=== PATIENT | female | born 1950 | race Two or more races ===

== ENCOUNTER 2025-06-14 12:00 | Outpatient (CLI) | payer OTHER | END 2025-06-14 12:03 | disposition home or self-care (01) | LOC: RAD 12:00 | PROVIDERS: ATTEND Internal Medicine Rheumatology | DX: M19.90 Unspecified osteoarthritis, unspecified site (principal); M50.80 Other cervical disc disorders, unspecified cervical region; M51.9 Unspecified thoracic, thoracolumbar and lumbosacral intervertebral disc disorder ==

== ENCOUNTER 2025-08-17 07:38 | Outpatient (CLI) | payer OTHER | END 2025-08-17 07:40 | disposition home or self-care (01) | LOC: TOM 07:38 | DX: C18.2 Malignant neoplasm of ascending colon (principal) | CPT/HCPCS: 74177; Q9965 ==